=== PATIENT | male | born 1990 | race Caucasian/White ===

== ENCOUNTER 2021-03-15 15:41 | Emergency (ER) | payer OTHER, SELFPAY ==
[2021-03-15 15:53] VITALS: BP 152/84; PULSE 88; RESP 16; TEMP 36.9; O2SAT 99
--- NOTE | 2021-03-15 16:22 | ED.SKABFB ---
HPI - Skin/Abscess/Foreign Bdy General Chief complaint: Skin/Abscess/Foreign Body Stated complaint: Blisters on Face Time Seen by Provider: 03/15/21 16:06 Source: patient and RN notes reviewed Mode of arrival: ambulatory Limitations: no limitations History of Present Illness HPI narrative: Patient presents today complaining of rash to the right outer canthus 3 days ago, then he developed worsening rash to the nose and right upper lip and headache to the right side of his head before developing rash to the right scalp. Symptoms have worsened today. Patient has tried Tylenol without relief. MD complaint: rash Related Data Allergies Allergy/AdvReac Type Severity Reaction Status Date / Time amoxicillin Allergy Mild Rash Verified 03/15/21 16:12 Review of Systems Review of Systems: CONSTITUTIONAL: Denies body aches, fever, chills, or sweats. EYES: Denies visual changes, redness, or discharge. ENT: Denies rhinorrhea, congestion, sore throat, or otalgia. CARDIOVASCULAR: Denies chest pain, palpitations, or edema. RESPIRATORY: Denies cough or dyspnea. GASTROINTESTINAL: Denies abdominal pain, nausea, vomiting, or diarrhea. GENITOURINARY: Denies dysuria or hematuria. SKIN: Denies itching, or wounds. + Rash MUSCULOSKELETAL: Denies back pain, joint pain, or myalgia. NEUROLOGIC: Denies numbness, tingling, or weakness. + Headache PSYCH: Denies depression or anxiety. PMFSH Comments At time of signature, I have reviewed and agree with nursing past medical, surgical, social and family history unless otherwise noted. Please see nursing chart for further information. There is no relevant family history pertinent to the presenting complaint Exam Narrative: GENERAL: Well-appearing, well-nourished, and in no acute distress. HEAD: Normocephalic, atraumatic. EYES: EOMI. No redness or drainage. Conjunctivae normal. ENT: Mucous membranes pink and moist. NECK: Normal AROM. Supple. No lymphadenopathy. CHEST: No respiratory distress. Clear to auscultation. HEART: Regular rate and rhythm. No murmur appreciated. Normal peripheral pulses. ABDOMEN: Soft, nontender, nondistended, normal active bowel sounds. MUSCULOSKELETAL: No bony tenderness. EXTREMITIES: Normal range of motion. No edema. SKIN: Warm, dry. Capillary refill normal. Normal skin turgor. Small erythematous vesicles to the right outer canthus, right lower lateral lash line, right nose, right upper lip, right cheek, extending to the right nondenominational and right scalp. NEURO: No focal deficits. Alert and oriented x3. Gait steady. PSYCH: Normal affect. No signs of depression or anxiety. Course Vital Signs Vital signs: Vital Signs Temperature 98.4 F 03/15/21 15:53 Pulse Rate 88 03/15/21 15:53 Respiratory Rate 16 03/15/21 15:53 Blood Pressure 152/84 H 03/15/21 15:53 Pulse Oximetry 99 03/15/21 15:53 Temperature 98.4 F 03/15/21 15:53 Pulse Rate 88 03/15/21 15:53 Respiratory Rate 16 03/15/21 15:53 Blood Pressure 152/84 H 03/15/21 15:53 Pulse Oximetry 99 03/15/21 15:53 Reviewed. Pt has been instructed to follow up with his PCP regarding his elevated blood pressure today. MDM - Skin/Abscess/Foreign Bdy Differential Diagnosis Differential diagnosis: Likely viral exanthem, urticaria, herpes zoster, cellulitis, eczema, impetigo and contact dermatitis Critical Care Time Critical Care Time Critical Care Time: No Discharge Plan Discharge Clinical Impression: Herpes zoster Patient Disposition: Home, Self-Care Condition: Stable Instructions: Shingles (ED) Additional Instructions: Your rash has been diagnosed as shingles. Please take the valacyclovir as prescribed until gone. Take Aleve or ibuprofen for pain. Please follow-up with an eye doctor this week to make sure there is no eye involvement. Your blood pressure was elevated above 120/80 today at Urgent Care. This puts you above the threshold for follow up. Please schedule a followup visit wit
== END 2021-03-15 16:35 | disposition home or self-care (01) ==
PROVIDERS: Emergency Provider Nurse Practitioner
DX: B02.9 Zoster without complications (principal)
CPT/HCPCS: 99213; G0463

== ENCOUNTER 2021-07-06 18:18 | Emergency (ER) | payer OTHER, SELFPAY ==
--- NOTE | ~2021-07-06 | XR_ITS ---
XR abdomen/kub 1V DATE: 07/06/2021 19:02 INDICATION: Abdominal pain. Patient thinks he passed a kidney stone. TECHNIQUE: AP view COMPARISON: None FINDINGS: The psoas shadows are intact. No visceromegaly. No evidence of bowel obstruction. No abnormal calcification is identified. Included skeletal structures are unremarkable. IMPRESSION: Negative examination Reviewed, dictated and finalized at [facility]. Reviewed, dictated and finalized at [facility]. NOMIST IMPRESSION: Negative examination
[2021-07-06 18:20] VITALS: BP 150/107; PULSE 87; RESP 18; TEMP 35.9; O2SAT 99
--- NOTE | 2021-07-06 18:36 | ED.MALEGU ---
HPI - Male Genitourinary General Chief complaint: Urogenital-Male Stated complaint: UTI Time Seen by Provider: 07/06/21 18:37 Source: patient Limitations: no limitations History of Present Illness HPI Narrative: 31-year-old male presented for complaints of one episode of painful urination, onset today. He states when he was urinating he felt a very sharp pain to the penis. Also endorses orange-colored urine. He states in May he was treated for UTI symptoms which included burning with urination and hesitancy. He states his symptoms improved when the PCP gave him an antibiotic. Denies associated flank pain, nausea, vomiting, diarrhea, fevers, chills or hematuria. No concern for STD. Related Data Allergies Allergy/AdvReac Type Severity Reaction Status Date / Time amoxicillin Allergy Mild Rash Verified 07/06/21 18:37 Review of Systems Review of Systems: CONSTITUTIONAL: Denies body aches, fever, chills, or sweats. CARDIOVASCULAR: Denies chest pain, palpitations, or edema. RESPIRATORY: Denies cough or dyspnea. GASTROINTESTINAL: Denies abdominal pain, nausea, vomiting, or diarrhea. GENITOURINARY: Reports dysuria, denies frequency, urgency, hematuria, flank pain SKIN: Denies rash, itching, or wounds. MUSCULOSKELETAL: Denies back pain or myalgia. PMFSH Comments At time of signature, I have reviewed and agree with nursing past medical, surgical, social and family history unless otherwise noted. Please see nursing chart for further information. There is no relevant family history pertinent to the presenting complaint Exam Narrative: GENERAL: Well-appearing and in no acute distress. HEAD: Normocephalic EYES: EOMI. . ENT: Mucous membranes pink and moist. NECK: Normal AROM. Supple. CHEST: No respiratory distress. Clear to auscultation. HEART: Regular rate and rhythm. ABDOMEN: Soft, nontender, nondistended, normal active bowel sounds. No CVA tenderness MUSCULOSKELETAL: No bony tenderness. SKIN: Warm, dry, no rash. NEURO: No focal deficits. Alert and oriented x3. Gait steady. PSYCH: Normal affect. No signs of depression or anxiety. Course Course Emergency Course: After urine dip was provided, he mentioned he had taken AZO today due to odor and dark color. Urine results likely not accurate, shows Leuk 3+, however pt is asymptomatic. Will send for culture KUB unremarkable. Patient is aware of diagnosis, understands and agrees to treatment plan. Anticipatory guidance given. Patient agrees to follow-up as directed and is aware of reasons to seek care at the emergency department. Portions of this record may have been created with voice recognition software Level of Care: Express Care Visit Vital Signs Vital signs: Vital Signs Temperature 96.6 F L 07/06/21 18:20 Pulse Rate 87 07/06/21 18:20 Respiratory Rate 18 07/06/21 18:20 Blood Pressure 150/107 H 07/06/21 18:20 Pulse Oximetry 99 07/06/21 18:20 Temperature 96.6 F L 07/06/21 18:20 Pulse Rate 87 07/06/21 18:20 Respiratory Rate 18 07/06/21 18:20 Blood Pressure 150/107 H 07/06/21 18:20 Pulse Oximetry 99 07/06/21 18:20 Reviewed MDM - Male Genitourinary MDM Narrative Medical decision making narrative: Exam findings and UA show no acute concerns or changes; patient is non-toxic appearing and is in no distress. Patient is appropriate for outpatient treatment and follow-up. Differential Diagnosis Differential diagnosis: Likely urinary tract infection, urethritis and other (renal stone) Lab Data Attestation: I reviewed the patient's lab results. Labs: Urine Glucose Trace Reference Range: Negative Urine Bilirubin Negative Reference Range: Negative Urine Ketone Trace Reference Range: Negative Urine Specific [place] 1.025
== END 2021-07-06 19:55 | disposition home or self-care (01) ==
PROVIDERS: Emergency Provider Nurse Practitioner Family
DX: R30.0 Dysuria (principal)
CPT/HCPCS: 74018; 81003; 87086; 99213; G0463

== ENCOUNTER 2025-04-06 16:58 | Emergency (ER) | payer OTHER, SELFPAY ==
[2025-04-06 17:05] VITALS: BP 149/83; PULSE 79; RESP 16; TEMP 36.8; O2SAT 99
--- NOTE | 2025-04-06 17:08 | ED.SKABFB ---
HPI - Skin/Abscess/Foreign Bdy General Chief complaint: Skin/Abscess/Foreign Body Stated complaint: rash patient presents to the [facility] with complaints of small slightly itchy circular area to left lower back that is right along his pants line. Patient reports showing this to someone at work who thought this could be a spider bite. Patient denies any significant pain Or drainage from the area. No medication or attempted for symptoms. denies fever, chills, body aches, nausea, vomiting, diarrhea. Related Data Allergies Allergy/AdvReac Type Severity Reaction Status Date / Time amoxicillin Allergy Mild Rash Verified 04/06/25 17:11 Review of Systems Constitutional: Constitutional: Reports as per HPI, Denies chills, Denies fatigue, Denies fever(s) and Denies weakness Eyes: Eyes: Reports no additional eye complaints Cardiovascular: Cardiovascular: Reports no additional cardiovascular complaints Respiratory: Respiratory: Reports no additional respiratory complaints Gastrointestinal: Gastrointestinal: Reports as per HPI, Denies abdominal pain, Denies diarrhea, Denies nausea and Denies vomiting Genitourinary: Genitourinary: Reports no additional male genitourinary complaints Musculoskeletal: Musculoskeletal: Reports as per HPI, Denies back pain and Denies myalgias Integumentary/Breasts: Skin/Breast: Reports as per HPI, Reports erythema, Denies rash and Denies skin ulcer Comments: circular area of redness, concern for spider bite Neurologic: Reports as per HPI, Denies numbness and Denies weakness Psychiatric: Psychiatric: Reports no additional psychiatric complaints Endocrine: Endocrine: Reports no additional endocrine complaints Hematologic/Lymphatic: Hematologic/Lymphatic: Reports no additional hematologic/lymphatic complaints Allergic/Immunologic: Allergic/Immunologic: Reports no additional allergic/immunologic complaints Exam Const: General: healthy appearing and no acute distress Nutritional Appearance: well nourished Orientation/consciousness: patient oriented x3 Limitations: no limitations Resp: Effort & Inspection: normal respiratory effort Auscultation: clear to auscultation bilaterally Cardio: Rate: regular rate Rhythm: regular rhythm Skin: General skin exam: normal color Rashes: no rashes Wounds: no wounds Other: area of erythema with center fluctuant area consistent with abscess the left lower back 2 cm by 1 cm. No active drainage or crusting noted. Minimal surrounding erythema/cellulitis Neuro: General: patient oriented x3 Speech: normal speech Gait exam (Neuro): Normal gait present Psych: Mental Status: mental status grossly normal Affect: normal affect Attitude: cooperative Course Course Level of Care: Express Care Visit Vital Signs Vital signs: Vital Signs Temperature 98.2 F 04/06/25 17:05 Pulse Rate 79 04/06/25 17:05 Respiratory Rate 16 04/06/25 17:05 Blood Pressure 149/83 H 04/06/25 17:05 Pulse Oximetry 99 04/06/25 17:05 Oxygen Delivery Room Air 04/06/25 17:05 Temperature 98.2 F 04/06/25 17:05 Pulse Rate 79 04/06/25 17:05 Respiratory Rate 16 04/06/25 17:05 Blood Pressure 149/83 H 04/06/25 17:05 Pulse Oximetry 99 04/06/25 17:05 Oxygen Delivery Room Air 04/06/25 17:05 Procedures Abscess I/D back: Date of Incision: 04/06/25 Time of Incision: 17:25 Side (if applicable): left Local Anesthetic: lidocaine 1% Amount of anesthesia used (mL): 1 Technique: incised with #11 blade Amount of fluid expressed (mL): 1 Irrigation: No Packing used?: none I&D Results: Pus and Blood Abcess I&D Additional Comments: bacitracin and Band-Aid placed MDM - Skin/Abscess/Foreign Bdy MDM Narrative Medical decision making narrative: I&D completed minimal drainage noted. Will place patient on antibiotics. The patient was evaluated by myself in the express care. History is obtained from patient who is an independent historian and physical exam was performed. Available medical records were reviewed at this time. Exam findings show no acute concerns or changes; patient is non-toxic appearing and is in no distress. Patient is appropriate for outpatient treatment and follow-up. I have evaluated and discussed social determinants of health with the patient that could potentially impact subsequent diagnosis and treatment plans. Differential diagnosis and treatment plan were discussed with the patient. Patient agrees with discussion and after shared medical decision making agrees with plan of care. All questions were answered to the patient's satisfaction. Differential Diagnosis Differential diagnosis: Likely abscess of skin or subcutaneous tissue, dermatophytosis, cellulitis and contact dermatitis Medical Records Attestation: I reviewed the patient's medical records. Discharge Plan Discharge Clinical Impression: Abscess of lower back Patient Disposition: Home Condition: Stable Instructions: Antibiotic Form, Abscess (ED), Abscess Follow-up (ED) Additional Instructions: DO NOT pick at the area. This will only make the area worse and drive infection deeper. DO NOT pick at the area. This will only make the area worse and drive infection deeper. Clean with soap and water only; Avoid using alcohol and peroxide. apply warm compresses for 20 minute several times a day to help soften the drainage, this may help open the area and cause drainage to come out. Alternate Tylenol/ibuprofen for as needed for pain Acetaminophen(Tylenol) 650-1000mg every 4-6hours with max of 4000mg/day. Nonsteroidal anti-inflammatory agent (NSAIDs-ibuprofen): 400mg every 4-6hours with max 2400mg/day Take antibiotic until it's gone. If you began to have multiple or reoccurring abscesses in these areas may use daily tea tree body washes or weekly chlorhexidine/Hibiclens washes, bleach baths, or Phisohex change razors or any shaving products you have used around this area. Using fresh towel daily while areas flared up. Please schedule a follow up visit with your personal physician for further evaluation and treatment within 3-5days OR if your symptoms persist, change or worsen significantly before you can contact your personal physician then please, without delay, go to the emergency department for further evaluation. Patient Language: Faroese Prescriptions: New sulfamethoxazole-trimethoprim [Bactrim DS] 800-160 mg tablet 1 tablet PO Q12H Qty: 14 0RF Follow-up/Referrals: PHYSICIAN,CLOTHING MAN [Primary Care Provider, Internal Medicine] Time of Disposition: 17:28
== END 2025-04-06 17:33 | disposition home or self-care (01) ==
PROVIDERS: Emergency Provider Nurse Practitioner Family
DX: L02.212 Cutaneous abscess of back [any part, except buttock and flank] (principal)
CPT/HCPCS: 10060; 99213; G0463; J2003